=== PATIENT | female | born 1970 | race Caucasian/White ===

== ENCOUNTER 2016-11-18 15:35 | Emergency (ER) | payer OTHER ==
--- NOTE | 2016-11-18 16:59 | DIAGNOSTIC IMAGING REPORT ---
PROCEDURE: XR HIP 2VW W W/O AP PELVIS-LT INDICATION: TRAUMA/INJURY TECHNIQUE: AP view of the pelvis and hips with lateral view of the left hip. COMPARISON: Left hip x-ray 07/15/2011. FINDINGS: LEFT HIP: No fracture or dislocation. Mild degenerative changes. PELVIS: Three side plates and multiple screws fixating the left ilium, acetabulum and the left superior pubic ramus. No visible fracture lines. Soft tissues are unremarkable. No significant interval change. IMPRESSION: 1. Mild left hip degenerative changes 2. Old pelvic postsurgical changes
--- NOTE | 2016-11-18 17:55 | ED ORDER SUMMARY ---
..... Patient: LUIS POSADA OrderSheet [facility] VisitID: [id number] [address] [place] [address] 45y, F Registration Date/Time: 11/18/2016 ORDER SHEET Weight: 65.7 kg (stated) Allergies: Sulfa Antibiotics GENERAL ORDERS: Hip 2V Right w AP Pelvis Urgent (16:24 11/18/2016 EKoroleva P.A.-C) (Ack 16:32 Vilma) (Cancelled: Other16:34 EKoroleva P.A.-C) Hip 2V Left w AP Pelvis Urgent (16:34 11/18/2016 EKoroleva P.A.-C) (Ack 16:38 Vilma) (16:47 Luisavis) MEDICATION ORDERS: Percocet PO 5/325 mg (HIGH ALERT MEDICATION, NOW) (17:06 11/18/2016 EKoroleva P.A.-C) (17:14 KKnebel R.N.) Phenergan PO 12.5 mg (HIGH ALERT MEDICATION, NOW) (17:18 11/18/2016 EKoroleva P.A.-C) (17:22 KKnebel R.N.) Zofran ODT PO 4 mg (NOW) (17:18 11/18/2016 EKoroleva P.A.-C) (Ack 17:23 KKnebel R.N.) IV FLUIDS: ORDER SHEET NOTES: [Electronically signed by Juan Love R.N. (18:11 11/18/2016)] [Electronically signed by Elle Tillman P.A.-C (18:29 11/18/2016)] [Electronically locked/signed by Juan Love R.N. (18:11 11/18/2016)]
--- NOTE | 2016-11-18 17:55 | ED ORDER SUMMARY ---
..... Patient: LUIS POSADA OrderSheet [facility] VisitID: [id number] [address] [place] [address] 45y, F Registration Date/Time: 11/18/2016 ORDER SHEET Weight: 65.7 kg (stated) Allergies: Sulfa Antibiotics GENERAL ORDERS: Hip 2V Right w AP Pelvis Urgent (16:24 11/18/2016 EKoroleva P.A.-C) (Ack 16:32 Vilma) (Cancelled: Other16:34 EKoroleva P.A.-C) Hip 2V Left w AP Pelvis Urgent (16:34 11/18/2016 EKoroleva P.A.-C) (Ack 16:38 Vilma) (16:47 Luisavis) MEDICATION ORDERS: Percocet PO 5/325 mg (HIGH ALERT MEDICATION, NOW) (17:06 11/18/2016 EKoroleva P.A.-C) (17:14 KKnebel R.N.) Phenergan PO 12.5 mg (HIGH ALERT MEDICATION, NOW) (17:18 11/18/2016 EKoroleva P.A.-C) (17:22 KKnebel R.N.) Zofran ODT PO 4 mg (NOW) (17:18 11/18/2016 EKoroleva P.A.-C) (Ack 17:23 KKnebel R.N.) IV FLUIDS: ORDER SHEET NOTES: [Electronically signed by Juan Love R.N. (18:11 11/18/2016)] [Electronically signed by Elle Tillman P.A.-C (18:29 11/18/2016)] [Electronically locked/signed by Juan Love R.N. (18:11 11/18/2016)]
--- NOTE | 2016-11-18 17:55 | ED NURSING NOTES ---
Clinical Report - Nurses [facility] [address] [place] [address] 11/18/2016 15:36 Patient: LUIS POSADA TRIAGE Triage time 16:Nov 18 2016. Acuity: LEVEL 3. Chief Complaint: LEFT LOWER EXTREMITY PAIN. Alert. No acute distress. SEPSIS SCREEN: Sepsis Screen. Negative (no infection suspected/documented). REJI COMA SCORE: Reji Coma Scale: 15- eyes open spontaneously (4); best verbal response- oriented x 4 (5); best motor response- obeys commands (6). --16:17 Goldie Parikh R.N. 16:08 11/18/16. BP: 123/72. HR: 83. RR: 16. O2 saturation: 98%. Temp: 97.5 F. Pain level now: 12/21. --16:17 Goldie Parikh R.N. Weight: 65.7 kg stated. Height/Length: 65 inches Per Patient. BMI: 24.1. --16:14 Goldie Parikh R.N. Medications Multivitamins Oral. --16:12 Goldie Parikh R.N. Allergies Sulfa Antibiotics. --16:12 Goldie Parikh R.N. History Arrived by private vehicle. Historian: patient. Accompanied by friend. No injury occurred. This occurred (about 2 months). It is described as radiating to the right lower back and pelvis and left lower back and pelvis. Provoking / relieving factors: worsened by sitting and standing; relieved by remaining still. ( headache). 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 Recently seen in a clinic; labs done- urinalysis. (excedrin migraine). PAST MEDICAL HX: Tetanus status: up-to-date. Immunizations: up-to-date. Last normal menstrual period was 2 weeks ago. Denies current . SOCIAL HX: Current every day heavy tobacco smoker (cigarette)- less than 1 pack per day. Occasional alcohol use. History of occasional drug use: marijuana. No infectious disease exposure. SELF HARM ASSESSMENT: A self harm assessment was performed. The patient answered "no" to the question "Do you have thoughts of harming or killing yourself?". ABUSE ASSESSMENT: Abuse assessment: The patient was asked "Do you feel safe in your home?". --16:17 Goldie Parikh R.N. PROBLEMS: Insect Bite(s). Hives. Ectopic . Ovarian Cyst. Gastroesophageal Reflux Disease. Pelvic injury. Fibroid cysts. Tetanus Status. Abscess. Immunizations. LNMP - Last Normal Menstrual Period. --16:13 Goldie Parikh R.N. ADDITIONAL SURGERIES: Pelvic surgery. --16:13 Goldie Parikh R.N. Interventions ID band on patient. To room. --16:17 Goldie Parikh R.N. PHYSICAL ASSESSMENT To room via wheelchair. GENERAL / NEURO / PSYCH: Oriented X 4. Alert. Appears in no acute distress. EXTREMITIES: Limited ROM present. Extremity pulses are within normal limits. Neuro-vascular status intact to the extremity. Left hip. Limited ROM (pain that increases with movement). SKIN: Skin intact. Skin is warm and dry. --16:19 Goldie Praikh R.N. NURSING PROGRESS NOTES Patient gowned. Patient identifiers checked. Call light placed in reach. Side rails up x 1. Bed placed in lowest position. Brakes of bed on. --16:19 Goldie Parikh R.N. 17:14 11/18/2016 Percocet (Oxycodone-Acetaminophen) PO 10/650 mg Tablets 1 tab given. Allergies verified, confirmed 5 rights and sedative warning given to the patient. --17:14 Goldie Parikh R.N. The patient is calm and resting quietly. Overall patient status is the same- she states feels the same. --17:17 Goldie Parikh R.N. 17:16 11/18/16. BP: 121/82. HR: 77. RR: 16. O2 saturation: 99%. Pain level now: 6/10. --17:17 Goldie Parikh R.N. 17:22 11/18/2016 Phenergan (Promethazine HCl) PO Tablets 12.5 mg given. Allergies verified, confirmed 5 rights and sedative warning given to the patient. --17:22 Goldie Parikh R.N. Reassessment after medication administered. She is calm and resting quietly. Overall patient status is the same- she states feels the same. --17:48 Goldie Parikh R.N. 17:47 11/18/16. BP: 116/75. HR: 82. RR: 16. O2 saturation: 100%. Pain level now: 12/21. --17:48 Goldie Parikh R.N. DISPOSITION / DISCHARGE 18:03 11/18/16. Condition at departure: improved. The goals identified in the patient's plan of care were met. No learning barriers present. Discharge instructions provided and reviewed with the patient. Reviewed warnings. Reviewed medication(s). Treatments reviewed. Patient verbalized understanding. The patient was discharged by the physician assistant brand manager. She was discharged home and accompanied by family. She left the Emergency Department ambulatory and via private vehicle. Family member driving. FALL RISK ASSESSMENT: Fall risk assessment completed. No fall risk identified. --18:04 Juan Love R.N. 18:02 11/18/16. BP: 118/67. HR: 74. RR: 20. O2 saturation: 99% on room air. Temp: 97.9 F (oral). Pain level now: 08/23. --18:04 Juan Love R.N. 18:10 11/18/16. ( Gave pt a copy of her x-ray on a CD and also dictation of x-ray results). --18:10 Juan Love R.N. 18:10 11/18/16. Departure time: 18:10. --18:10 Juan Love R.N. Locked/Released at 11/18/2016 18:11 by Juan Love R.N.
--- NOTE | 2016-11-18 17:55 | ED CLINICAL REPORT ---
Clinical Report - Physicians/Mid Levels [facility] [address] [place] [address] 11/18/2016 15:36 Patient: LUIS POSADA Time Seen: 17:06 Nov 18 2016. Arrived- By private vehicle. Historian- patient. HISTORY OF PRESENT ILLNESS Chief Complaint: BACK PAIN. LEFT LEG PAIN. Onset- 3-4 weeks and it is still present. It is described as being moderate in degree and in the area of the left SI joint and left gluteus. The quality is noted to be "pain". No bladder dysfunction. Additional history - Recurring left hip pain, worsening as patient has had increase in her work. 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 Patient worsening over the last few months. Has not followed up with her orthopedics or her primary care provider. Patient denies an injury. REVIEW OF SYSTEMS No fever, urinary frequency, cough or vomiting. All systems otherwise negative, except as recorded above. SOCIAL HISTORY Smoker- current status unknown. No drug use. ADDITIONAL NOTES The nursing notes have been reviewed. PHYSICAL EXAM Vital Signs: 11/18/2016 16:08 BP: 123/72. HR: 83. RR: 16. O2 saturation: 98%. Temp: 97.5 F. Pain level now: 6/10. Appearance: Alert. No acute distress. Eyes: Pupils equal, round and reactive to light. Neck: Normal inspection. Neck nontender. CVS: Heart sounds normal. No decreased pulses. Respiratory: No respiratory distress. Breath sounds normal. Abdomen: Soft. Bowel sounds normal. Back: Normal inspection. No tenderness. No vertebral point tenderness or soft tissue tenderness. Skin: Skin warm. Normal skin color. Extremities: (Left lateral hip pain, pain with external rotation. Previous surgical scar appears clean dry and intact. No swelling or erythema.). Neuro: Oriented X 3. PROGRESS AND PROCEDURES Course of Care: There are no risks for spinal epidural abscess or hematoma as patient is without any risk factors such as IVDA or evidence of active infection, no midline tenderness to percussion. Hence I do not feel emergent imaging with an MRI is indicated. However I did discuss with the patient that if these symptoms develop, or if the pain does not resolve an MRI may need to be done outpatient, or in the ED if symptoms worsen acutely or new onset of the above mentioned symptoms develop. 11/18/2016 18:02 BP: 118/67. HR: 74. RR: 20. O2 saturation: 99%. Temp: 97.9 F. Pain level now: 08/23. 11/18/2016 17:47 BP: 116/75. HR: 82. RR: 16. O2 saturation: 100%. Pain level now: 12/21. Patient is stable. Symptoms better. Patient/family counseled. Disposition: Discharged. CLINICAL IMPRESSION Acute arthritis of the left hip. INSTRUCTIONS Apply ice. Limit lifting. No strenuous activity. Rest. Prescription Medications: Hydrocodone/APAP 7.5mg / 325mg: take 1 orally every 6 hours. Dispense twelve (12). No refill. [facility]-up with: [facility], , [address] , [place], [id number] (Electronically signed by Elle Tillman P.A.-C 11/18/2016 18:29)
--- NOTE | 2016-11-18 17:55 | ED NURSING NOTES ---
Clinical Report - Nurses [facility] [address] [place] [address] 11/18/2016 15:36 Patient: LUIS POSADA TRIAGE Triage time 16:Nov 18 2016. Acuity: LEVEL 3. Chief Complaint: LEFT LOWER EXTREMITY PAIN. Alert. No acute distress. SEPSIS SCREEN: Sepsis Screen. Negative (no infection suspected/documented). REJI COMA SCORE: Reji Coma Scale: 15- eyes open spontaneously (4); best verbal response- oriented x 4 (5); best motor response- obeys commands (6). --16:17 Goldie Parikh R.N. 16:08 11/18/16. BP: 123/72. HR: 83. RR: 16. O2 saturation: 98%. Temp: 97.5 F. Pain level now: 12/21. --16:17 Goldie Parikh R.N. Weight: 65.7 kg stated. Height/Length: 65 inches Per Patient. BMI: 24.1. --16:14 Goldie Parikh R.N. Medications Multivitamins Oral. --16:12 Goldie Parikh R.N. Allergies Sulfa Antibiotics. --16:12 Goldie Parikh R.N. History Arrived by private vehicle. Historian: patient. Accompanied by friend. No injury occurred. This occurred (about 2 months). It is described as radiating to the right lower back and pelvis and left lower back and pelvis. Provoking / relieving factors: worsened by sitting and standing; relieved by remaining still. ( headache). 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 Recently seen in a clinic; labs done- urinalysis. (excedrin migraine). PAST MEDICAL HX: Tetanus status: up-to-date. Immunizations: up-to-date. Last normal menstrual period was 2 weeks ago. Denies current . SOCIAL HX: Current every day heavy tobacco smoker (cigarette)- less than 1 pack per day. Occasional alcohol use. History of occasional drug use: marijuana. No infectious disease exposure. SELF HARM ASSESSMENT: A self harm assessment was performed. The patient answered "no" to the question "Do you have thoughts of harming or killing yourself?". ABUSE ASSESSMENT: Abuse assessment: The patient was asked "Do you feel safe in your home?". --16:17 Goldie Parikh R.N. PROBLEMS: Insect Bite(s). Hives. Ectopic . Ovarian Cyst. Gastroesophageal Reflux Disease. Pelvic injury. Fibroid cysts. Tetanus Status. Abscess. Immunizations. LNMP - Last Normal Menstrual Period. --16:13 Goldie Parikh R.N. ADDITIONAL SURGERIES: Pelvic surgery. --16:13 Goldie Parikh R.N. Interventions ID band on patient. To room. --16:17 Goldie Parikh R.N. PHYSICAL ASSESSMENT To room via wheelchair. GENERAL / NEURO / PSYCH: Oriented X 4. Alert. Appears in no acute distress. EXTREMITIES: Limited ROM present. Extremity pulses are within normal limits. Neuro-vascular status intact to the extremity. Left hip. Limited ROM (pain that increases with movement). SKIN: Skin intact. Skin is warm and dry. --16:19 Goldie Parikh R.N. NURSING PROGRESS NOTES Patient gowned. Patient identifiers checked. Call light placed in reach. Side rails up x 1. Bed placed in lowest position. Brakes of bed on. --16:19 Goldie Parikh R.N. 17:14 11/18/2016 Percocet (Oxycodone-Acetaminophen) PO 10/650 mg Tablets 1 tab given. Allergies verified, confirmed 5 rights and sedative warning given to the patient. --17:14 Goldie Parikh R.N. The patient is calm and resting quietly. Overall patient status is the same- she states feels the same. --17:17 Goldie Parikh R.N. 17:16 11/18/16. BP: 121/82. HR: 77. RR: 16. O2 saturation: 99%. Pain level now: 6/10. --17:17 Goldie Parikh R.N. 17:22 11/18/2016 Phenergan (Promethazine HCl) PO Tablets 12.5 mg given. Allergies verified, confirmed 5 rights and sedative warning given to the patient. --17:22 Goldie Parikh R.N. Reassessment after medication administered. She is calm and resting quietly. Overall patient status is the same- she states feels the same. --17:48 Goldie Parikh R.N. 17:47 11/18/16. BP: 116/75. HR: 82. RR: 16. O2 saturation: 100%. Pain level now: 12/21. --17:48 Goldie Parikh R.N. DISPOSITION / DISCHARGE 18:03 11/18/16. Condition at departure: improved. The goals identified in the patient's plan of care were met. No learning barriers present. Discharge instructions provided and reviewed with the patient. Reviewed warnings. Reviewed medication(s). Treatments reviewed. Patient verbalized understanding. The patient was discharged by the physician assistant secretary. She was discharged home and accompanied by family. She left the Emergency Department ambulatory and via private vehicle. Family member driving. FALL RISK ASSESSMENT: Fall risk assessment completed. No fall risk identified. --18:04 Juan Love R.N. 18:02 11/18/16. BP: 118/67. HR: 74. RR: 20. O2 saturation: 99% on room air. Temp: 97.9 F (oral). Pain level now: 08/23. --18:04 Juan Love R.N. 18:10 11/18/16. ( Gave pt a copy of her x-ray on a CD and also dictation of x-ray results). --18:10 Juan Love R.N. 18:10 11/18/16. Departure time: 18:10. --18:10 Juan Love R.N. Locked/Released at 11/18/2016 18:11 by Juan Love R.N.
--- NOTE | 2016-11-18 17:55 | ED CLINICAL REPORT ---
Clinical Report - Physicians/Mid Levels [facility] [address] [place] [address] 11/18/2016 15:36 Patient: LUIS POSADA Time Seen: 17:06 Nov 18 2016. Arrived- By private vehicle. Historian- patient. HISTORY OF PRESENT ILLNESS Chief Complaint: BACK PAIN. LEFT LEG PAIN. Onset- 3-4 weeks and it is still present. It is described as being moderate in degree and in the area of the left SI joint and left gluteus. The quality is noted to be "pain". No bladder dysfunction. Additional history - Recurring left hip pain, worsening as patient has had increase in her work. 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 Patient worsening over the last few months. Has not followed up with her orthopedics or her primary care provider. Patient denies an injury. REVIEW OF SYSTEMS No fever, urinary frequency, cough or vomiting. All systems otherwise negative, except as recorded above. SOCIAL HISTORY Smoker- current status unknown. No drug use. ADDITIONAL NOTES The nursing notes have been reviewed. PHYSICAL EXAM Vital Signs: 11/18/2016 16:08 BP: 123/72. HR: 83. RR: 16. O2 saturation: 98%. Temp: 97.5 F. Pain level now: 6/10. Appearance: Alert. No acute distress. Eyes: Pupils equal, round and reactive to light. Neck: Normal inspection. Neck nontender. CVS: Heart sounds normal. No decreased pulses. Respiratory: No respiratory distress. Breath sounds normal. Abdomen: Soft. Bowel sounds normal. Back: Normal inspection. No tenderness. No vertebral point tenderness or soft tissue tenderness. Skin: Skin warm. Normal skin color. Extremities: (Left lateral hip pain, pain with external rotation. Previous surgical scar appears clean dry and intact. No swelling or erythema.). Neuro: Oriented X 3. PROGRESS AND PROCEDURES Course of Care: There are no risks for spinal epidural abscess or hematoma as patient is without any risk factors such as IVDA or evidence of active infection, no midline tenderness to percussion. Hence I do not feel emergent imaging with an MRI is indicated. However I did discuss with the patient that if these symptoms develop, or if the pain does not resolve an MRI may need to be done outpatient, or in the ED if symptoms worsen acutely or new onset of the above mentioned symptoms develop. 11/18/2016 18:02 BP: 118/67. HR: 74. RR: 20. O2 saturation: 99%. Temp: 97.9 F. Pain level now: 08/23. 11/18/2016 17:47 BP: 116/75. HR: 82. RR: 16. O2 saturation: 100%. Pain level now: 12/21. Patient is stable. Symptoms better. Patient/family counseled. Disposition: Discharged. CLINICAL IMPRESSION Acute arthritis of the left hip. INSTRUCTIONS Apply ice. Limit lifting. No strenuous activity. Rest. Prescription Medications: Hydrocodone/APAP 7.5mg / 325mg: take 1 orally every 6 hours. Dispense twelve (12). No refill. [facility]-up with: [facility], , [address] , [place], [phone] (Electronically signed by Elle Tillman P.A.-C 11/18/2016 18:29)
--- NOTE | 2016-11-18 18:29 | ED MED RECONCILIATION SUMMARY ---
Patient: LUIS POSADA Medication Reconciliation Report [facility] VisitID: [id number] [address] [place] [address] 45y, F Registration Date/Time: 11/18/2016 Weight: 65.7 kg Height/Length: 65 in. BMI: 24.1 ALLERGIES: Sulfa Antibiotics The patient's Home Medications are listed below: THE FOLLOWING MEDICATIONS NEED TO BE RECONCILED: Multivitamins Oral The source(s) of the original Home Medication information: Not obtained. The following Medications were given to the patient in the Emergency Department: Percocet [PO] PO 1 tab, administered: 11/18/2016 5:14:00 PM Phenergan [PO] PO 12.5 mg, administered: 11/18/2016 5:22:00 PM The following Medications were prescribed to the patient: Hydrocodone/APAP 7.5mg / 325mg: take 1 orally every 6 hours. Dispense twelve (12). No refill. -- Elle Tillman PMarzenaAEdilmaC
--- NOTE | 2016-11-18 18:29 | ED DISCHARGE INSTRUCTIONS ---
Patient: LUIS POSADA General Instructions [facility] VisitID: [id number] [address] [place] [address] 45y, F Registration Date/Time: 11/18/2016 Acute arthritis of the left hip. INSTRUCTIONS Apply ice. Limit lifting. No strenuous activity. Rest. Prescription Medications: Hydrocodone/APAP 7.5mg / 325mg: take 1 orally every 6 hours. Dispense twelve (12). No refill. Follow-up with: [facility], , [address], , [place], [address] ADDITIONAL INFORMATION Arthralgia Arthralgia is the term for pain in or around the joint. It is not a disease but a symptom. This may involve one or more joints. Sometimes arthralgias move from joint to joint. There are many causes for joint pain. These include: Injury Osteoarthritis (from wearing out of the joint surface) Rheumatoid arthritis (an autoimmune disease) Gout (inflammation of the joint due to crystals in the joint fluid) Infection inside the joint Bursitis (inflammation of the fluid-filled sacs around the joint) Lupus and other collagen-vascular disease Home Care: Rest the involved joint(s) until your symptoms improve. You may use acetaminophen (Tylenol) or ibuprofen (Motrin, Advil) to control pain, unless another pain medicine was prescribed. [NOTE: If you have chronic liver or kidney disease or ever had a stomach ulcer or GI bleeding, talk with your doctor before using these medicines.] Follow Up with your doctor or as advised by our staff. [NOTE: If you had an X-ray it will be reviewed by a specialist. You will be notified of any new findings that may affect your care.] Return Promptly or contact your doctor if any of the following occurs: Pain increases Pain moves to other joints New rash appears Fever of 100.4F (38C) or higher, or as directed by your healthcare provider Hydrocodone Bitartrate, Acetaminophen Oral tablet What is this medicine? ACETAMINOPHEN; HYDROCODONE (a set a KHLOE kai fen; azael droe KOE done) is a pain reliever. It is used to treat mild to moderate pain. How should I use this medicine? Take this medicine by mouth. Swallow it with a full glass of water. Follow the directions on the prescription label. If the medicine upsets your stomach, take the medicine with food or milk. Do not take more than you are told to take. Talk to your harnessmaker apprentice regarding the use of this medicine in children. This medicine is not approved for use in children. What side effects may I notice from receiving this medicine? Side effects that you should report to your doctor or health career specialist as soon as possible: allergic reactions like skin rash, itching or hives, swelling of the face, lips, or tongue breathing problems confusion feeling faint or lightheaded, falls stomach pain yellowing of the eyes or skin Side effects that usually do not require medical attention (report to your doctor or health career specialist if they continue or are bothersome): nausea, vomiting stomach upset What may interact with this medicine? alcohol antihistamines isoniazid medicines for depression, anxiety, or psychotic disturbances medicines for sleep muscle relaxants naltrexone narcotic medicines (opiates) for pain phenobarbital ritonavir tramadol What if I miss a dose? If you miss a dose, take it as soon as you can. If it is almost time for your next dose, take only that dose. Do not take double or extra doses. Where should I keep my medicine? Keep out of the reach of children. This medicine can be abused. Keep your medicine in a safe place to protect it from theft. Do not share this medicine with anyone. Selling or giving away this medicine is dangerous and against the law. Store at room temperature between 15 and 30 degrees C (59 and 86 degrees F). Protect from light. Keep container tightly closed. Throw away any unused medicine after the expiration date. Discard unused medicine and used packaging carefully. Pets and children can be harmed if they find used or lost packages. What should I tell my health care provider before I take this medicine? They need to know if you have any of these conditions: brain tumor Crohn's disease, inflammatory bowel disease, or ulcerative colitis drink more than 3 alcohol-containing drinks per day drug abuse or addiction head injury heart or circulation problems kidney disease or problems going to the bathroom liver disease lung disease, asthma, or breathing problems an unusual or allergic reaction to acetaminophen, hydrocodone, other opioid analgesics, other medicines, foods, dyes, or preservatives or trying to get breast-feeding What should I watch for while using this medicine? Tell your doctor or health career specialist if your pain does not go away, if it gets worse, or if you have new or a different type of pain. You may develop tolerance to the medicine. Tolerance means that you will need a higher dose of the medicine for pain relief. Tolerance is normal and is expected if you take the medicine for a long time. Do not suddenly stop taking your medicine because you may develop a severe reaction. Your body becomes used to the medicine. This does NOT mean you are addicted. Addiction is a behavior related to getting and using a drug for a non-medical reason. If you have pain, you have a medical reason to take pain medicine. Your doctor will tell you how much medicine to take. If your doctor wants you to stop the medicine, the dose will be slowly lowered over time to avoid any side effects. You may get drowsy or dizzy when you first start taking the medicine or change doses. Do not drive, use machinery, or do anything that may be dangerous until you know how the medicine affects you. Stand or sit up slowly. There are different types of narcotic medicines (opiates) for pain. If you take more than one type at the same time, you may have more side effects. Give your health care provider a list of all medicines you use. Your doctor will tell you how much medicine to take. Do not take more medicine than directed. Call emergency for help if you have problems breathing. The medicine will cause constipation. Try to have a bowel movement at least every 2 to 3 days. If you do not have a bowel movement for 3 days, call your doctor or health career specialist. Too much acetaminophen can be very dangerous. Do not take Tylenol (acetaminophen) or medicines that contain acetaminophen with this medicine. Many non-prescription medicines contain acetaminophen. Always read the labels carefully. You have been given the following additional information: Arthralgia Hydrocodone Bitartrate, Acetaminophen Oral tablet Limit lifting. No strenuous activity. Rest. (Electronically signed by Elle Tillman P.A.-C 11/18/2016 18:29)
--- NOTE | 2016-11-18 18:29 | ED MED RECONCILIATION SUMMARY ---
Patient: LUIS POSADA Medication Reconciliation Report [facility] VisitID: [id number] [address] [place] [address] 45y, F Registration Date/Time: 11/18/2016 Weight: 65.7 kg Height/Length: 65 in. BMI: 24.1 ALLERGIES: Sulfa Antibiotics The patient's Home Medications are listed below: THE FOLLOWING MEDICATIONS NEED TO BE RECONCILED: Multivitamins Oral The source(s) of the original Home Medication information: Not obtained. The following Medications were given to the patient in the Emergency Department: Percocet [PO] PO 1 tab, administered: 11/18/2016 5:14:00 PM Phenergan [PO] PO 12.5 mg, administered: 11/18/2016 5:22:00 PM The following Medications were prescribed to the patient: Hydrocodone/APAP 7.5mg / 325mg: take 1 orally every 6 hours. Dispense twelve (12). No refill. -- Elle Tillman PMarzenaAEdilmaC
--- NOTE | 2016-11-18 18:29 | ED DISCHARGE INSTRUCTIONS ---
Patient: LUIS POSADA General Instructions [facility] VisitID: [id number] [address] [place] [address] 45y, F Registration Date/Time: 11/18/2016 Acute arthritis of the left hip. INSTRUCTIONS Apply ice. Limit lifting. No strenuous activity. Rest. Prescription Medications: Hydrocodone/APAP 7.5mg / 325mg: take 1 orally every 6 hours. Dispense twelve (12). No refill. Follow-up with: [facility], , [address], , [place], [address] ADDITIONAL INFORMATION Arthralgia Arthralgia is the term for pain in or around the joint. It is not a disease but a symptom. This may involve one or more joints. Sometimes arthralgias move from joint to joint. There are many causes for joint pain. These include: Injury Osteoarthritis (from wearing out of the joint surface) Rheumatoid arthritis (an autoimmune disease) Gout (inflammation of the joint due to crystals in the joint fluid) Infection inside the joint Bursitis (inflammation of the fluid-filled sacs around the joint) Lupus and other collagen-vascular disease Home Care: Rest the involved joint(s) until your symptoms improve. You may use acetaminophen (Tylenol) or ibuprofen (Motrin, Advil) to control pain, unless another pain medicine was prescribed. [NOTE: If you have chronic liver or kidney disease or ever had a stomach ulcer or GI bleeding, talk with your doctor before using these medicines.] Follow Up with your doctor or as advised by our staff. [NOTE: If you had an X-ray it will be reviewed by a specialist. You will be notified of any new findings that may affect your care.] Return Promptly or contact your doctor if any of the following occurs: Pain increases Pain moves to other joints New rash appears Fever of 100.4F (38C) or higher, or as directed by your healthcare provider Hydrocodone Bitartrate, Acetaminophen Oral tablet What is this medicine? ACETAMINOPHEN; HYDROCODONE (a set a KHLOE kai fen; azael droe KOE done) is a pain reliever. It is used to treat mild to moderate pain. How should I use this medicine? Take this medicine by mouth. Swallow it with a full glass of water. Follow the directions on the prescription label. If the medicine upsets your stomach, take the medicine with food or milk. Do not take more than you are told to take. Talk to your orthodontic technician assistant regarding the use of this medicine in children. This medicine is not approved for use in children. What side effects may I notice from receiving this medicine? Side effects that you should report to your doctor or health reservoir caretaker as soon as possible: allergic reactions like skin rash, itching or hives, swelling of the face, lips, or tongue breathing problems confusion feeling faint or lightheaded, falls stomach pain yellowing of the eyes or skin Side effects that usually do not require medical attention (report to your doctor or health reservoir caretaker if they continue or are bothersome): nausea, vomiting stomach upset What may interact with this medicine? alcohol antihistamines isoniazid medicines for depression, anxiety, or psychotic disturbances medicines for sleep muscle relaxants naltrexone narcotic medicines (opiates) for pain phenobarbital ritonavir tramadol What if I miss a dose? If you miss a dose, take it as soon as you can. If it is almost time for your next dose, take only that dose. Do not take double or extra doses. Where should I keep my medicine? Keep out of the reach of children. This medicine can be abused. Keep your medicine in a safe place to protect it from theft. Do not share this medicine with anyone. Selling or giving away this medicine is dangerous and against the law. Store at room temperature between 15 and 30 degrees C (59 and 86 degrees F). Protect from light. Keep container tightly closed. Throw away any unused medicine after the expiration date. Discard unused medicine and used packaging carefully. Pets and children can be harmed if they find used or lost packages. What should I tell my health care provider before I take this medicine? They need to know if you have any of these conditions: brain tumor Crohn's disease, inflammatory bowel disease, or ulcerative colitis drink more than 3 alcohol-containing drinks per day drug abuse or addiction head injury heart or circulation problems kidney disease or problems going to the bathroom liver disease lung disease, asthma, or breathing problems an unusual or allergic reaction to acetaminophen, hydrocodone, other opioid analgesics, other medicines, foods, dyes, or preservatives or trying to get breast-feeding What should I watch for while using this medicine? Tell your doctor or health reservoir caretaker if your pain does not go away, if it gets worse, or if you have new or a different type of pain. You may develop tolerance to the medicine. Tolerance means that you will need a higher dose of the medicine for pain relief. Tolerance is normal and is expected if you take the medicine for a long time. Do not suddenly stop taking your medicine because you may develop a severe reaction. Your body becomes used to the medicine. This does NOT mean you are addicted. Addiction is a behavior related to getting and using a drug for a non-medical reason. If you have pain, you have a medical reason to take pain medicine. Your doctor will tell you how much medicine to take. If your doctor wants you to stop the medicine, the dose will be slowly lowered over time to avoid any side effects. You may get drowsy or dizzy when you first start taking the medicine or change doses. Do not drive, use machinery, or do anything that may be dangerous until you know how the medicine affects you. Stand or sit up slowly. There are different types of narcotic medicines (opiates) for pain. If you take more than one type at the same time, you may have more side effects. Give your health care provider a list of all medicines you use. Your doctor will tell you how much medicine to take. Do not take more medicine than directed. Call emergency for help if you have problems breathing. The medicine will cause constipation. Try to have a bowel movement at least every 2 to 3 days. If you do not have a bowel movement for 3 days, call your doctor or health reservoir caretaker. Too much acetaminophen can be very dangerous. Do not take Tylenol (acetaminophen) or medicines that contain acetaminophen with this medicine. Many non-prescription medicines contain acetaminophen. Always read the labels carefully. You have been given the following additional information: Arthralgia Hydrocodone Bitartrate, Acetaminophen Oral tablet Limit lifting. No strenuous activity. Rest. (Electronically signed by Elle Tillman P.A.-C 11/18/2016 18:29)
--- NOTE | 2016-11-18 18:29 | ED MAR SUMMARY ---
..... Medication Administration Record [facility] [address] [place] [address] Patient: LUIS POSADA Visit ID: [id number] 45y, F Weight: 65.7 kg Height/Length: 65 in BMI: 24.1 ALLERGIES: Sulfa Antibiotics Given 17:14 11/18/2016 Goldie Parikh R.N. Medication Administered: PERCOCET [PO] (OXYCODONE-ACETAMINOPHEN), Dose: 1 tab 10/650 mg Tablets PO. Medication Ordered: Percocet PO 5/325 mg (HIGH ALERT MEDICATION, NOW). Given 17:22 11/18/2016 Goldie Parikh R.N. Medication Administered: PHENERGAN [PO] (PROMETHAZINE HCL), Dose: 12.5 mg Tablets PO. Medication Ordered: Phenergan PO 12.5 mg (HIGH ALERT MEDICATION, NOW).
--- NOTE | 2016-11-18 18:29 | ED MAR SUMMARY ---
..... Medication Administration Record [facility] [address] [place] [address] Patient: LUIS POSADA Visit ID: [id number] 45y, F Weight: 65.7 kg Height/Length: 65 in BMI: 24.1 ALLERGIES: Sulfa Antibiotics Given 17:14 11/18/2016 Goldie Parikh R.N. Medication Administered: PERCOCET [PO] (OXYCODONE-ACETAMINOPHEN), Dose: 1 tab 10/650 mg Tablets PO. Medication Ordered: Percocet PO 5/325 mg (HIGH ALERT MEDICATION, NOW). Given 17:22 11/18/2016 Goldie Parikh R.N. Medication Administered: PHENERGAN [PO] (PROMETHAZINE HCL), Dose: 12.5 mg Tablets PO. Medication Ordered: Phenergan PO 12.5 mg (HIGH ALERT MEDICATION, NOW).
== END 2016-11-18 18:10 | disposition home or self-care (01) ==
LOC: ED SRH 15:35
DX: M16.12 Unilateral primary osteoarthritis, left hip (principal); Z88.2 Allergy status to sulfonamides; F17.210 Nicotine dependence, cigarettes, uncomplicated; F12.10 Cannabis abuse, uncomplicated